=== PATIENT | male | born 1970 | race Two or more races ===

== ENCOUNTER → 2021-05-09 | Emergency (ER) | payer BC ==
[~2021-05-09] VITALS: Ht 180.3 cm; Wt 84.8 kg
[~2021-05-09] MED LIST: FAMOTIDINE (20 MG) 20 MG TABLET ONE; FAMOTIDINE (20 MG) 20 MG TABLET PO ONE; cetrizine 10 MG TABLET ONE; cetrizine 10 MG TABLET PO ONE; predniSONE 10 MG TABLET PO ONE; predniSONE 20 MG TABLET ONE
[2021-05-09 08:15] VITALS: BP 153/87
--- NOTE | 2021-05-09 08:36 | NUR ---
51 YEARS OLD MALE ALERT, ORIENTED X4 WALKING TO ER WITH SCALP/NECK/ARM HIVES OFF/ON SINCE OCTOBER CAUSE UNKNOWN NO TONGUE SWELLING, MILD ITCH.
== END | disposition home or self-care (01) ==
LOC: ER 08:16
DX: L50.8 Other urticaria (principal); Z98.890 Other specified postprocedural states
CPT/HCPCS: 99284; J7512 ×2